=== PATIENT | male | born 1995 | race American Indian/Alaskan Native ===

== ENCOUNTER 2022-03-10 11:32 | Emergency (ER) | payer SELFPAY ==
[2022-03-10 12:47] VITALS: BP 127/84
--- NOTE | 2022-03-10 15:57 | Emergency Department Report ---
ED Recheck HPI - General Chief Complaint: Extremity Problem,Nontraumatic Stated Complaint: BLOOD CLOTS Time Seen by Provider: 03/10/22 14:58 Source: patient Mode of arrival: Ambulatory Limitations: No Limitations - History of Present Illness Initial Comments: This is a 27-year-old male nontoxic, well nourished in appearance, no acute signs of distress presents to the ED for medication change of Eliquis. Patient stated was diagnosed with DVT to right leg yesterday by [employer] but was not prescribed anything and was given a prescription for Eliquis but stated was not able to fill medication due to expense of it. Otherwise patient denies any acute symptoms or any changes of symptoms. Patient denies any chest pain, shortness of breath, fever, chills, nausea, vomiting, headache, stiff neck. Patient denies any allergies or significant past medical history. -: days(s) Symptoms Since Prior Visit: no new symptoms Associated Symptoms: none. denies: fever, chills, chest pain, shortness of breath, rash, malaise, nasuea, abdominal pain - Related Data Home Medications Medication Instructions Recorded Confirmed Last Taken No Known Home Medications [No 03/10/22 03/10/22 Unknown Reported Home Medications] Previous Rx's Medication Instructions Recorded Last Taken Type Rivaroxaban [Xarelto Starter Pack] 1 each PO DAILY 30 Days #1 pack 03/10/22 Unknown Rx ED Review of Systems ROS: Stated complaint: BLOOD CLOTS Other details as noted in HPI Comment: All other systems reviewed and negative Constitutional: denies: chills, fever Eyes: denies: eye pain, eye discharge, vision change ENT: denies: ear pain, throat pain Respiratory: denies: cough, shortness of breath, wheezing Cardiovascular: denies: chest pain, palpitations Endocrine: no symptoms reported Gastrointestinal: denies: abdominal pain, nausea, diarrhea Genitourinary: denies: urgency, dysuria Musculoskeletal: denies: back pain, joint swelling, arthralgia Skin: denies: rash, lesions Neurological: denies: headache, weakness, paresthesias Psychiatric: denies: anxiety, depression Hematological/Lymphatic: denies: easy bleeding, easy bruising ED Past Medical Hx - Past Medical History Additional medical history: DVT right lower leg - Social History Smoking Status: Never Smoker - Medications Home Medications: Home Medications Medication Instructions Recorded Confirmed Last Taken Type No Known Home Medications [No 03/10/22 03/10/22 Unknown History Reported Home Medications] Rivaroxaban [Xarelto Starter Pack] 1 each PO DAILY 30 Days #1 pack 03/10/22 Unknown Rx ED Physical Exam - General Limitations: No Limitations General appearance: alert, in no apparent distress - Head Head exam: Present: atraumatic, normocephalic - Eye Eye exam: Present: normal appearance - Neck Neck exam: Present: normal inspection, full ROM - Respiratory Respiratory exam: Absent: respiratory distress - Cardiovascular Cardiovascular Exam: Present: regular rate - Extremities Exam Extremities exam: Present: normal inspection, full ROM, tenderness, normal capillary refill, calf tenderness. Absent: joint swelling - Back Exam Back exam: Present: normal inspection, full ROM - Neurological Exam Neurological exam: Present: alert, oriented X3, normal gait - Psychiatric Psychiatric exam: Present: normal affect, normal mood - Skin Skin exam: Present: warm, dry, intact, normal color. Absent: rash ED Course Vital Signs 03/10/22 12:43 Temperature 98.6 F Pulse Rate 76 Respiratory 18 Rate Blood Pressure 127/84 O2 Sat by Pulse 98 Oximetry - Reevaluation(s) Reevaluation #1: 03/10/22 15:55 Patient is speaking in full sentences with no signs of distress noted. ED Recheck MDM - Medical Decision Making Patient received a dose of Xarelto. Patient also received a Xarelto 30-day free savings program and good Rx prescription card. Patient was instructed to follow-up with a primary care doctor in 3-5 days or if symptoms worsen and continue return to emergency room as soon as possible. At time of discharge, the patient does not seem toxic or ill in appearance. No acute signs of distress noted. Patient agrees to discharge treatment plan of care. No further questions noted by the patient. Critical care attestation.: If time is entered above; I have spent that time in minutes in the direct care of this critically ill patient, excluding procedure time. ED Disposition Clinical Impression: Medication course changed DVT (deep venous thrombosis) Qualifiers: DVT location: lower extremity Affected thrombotic vein of extremity: unspecified vein of extremity Chronicity: acute Laterality: right Qualified Code(s): I82.401 - Acute embolism and thrombosis of unspecified deep veins of right lower extremity Disposition: HOME / SELF CARE / HOMELESS Is pt being admited?: No Does the pt Need Aspirin: No Condition: Stable Instructions: Deep Vein Thrombosis, Rivaroxaban oral tablets Additional Instructions: Follow-up with a primary care doctor in 3-5 days or if symptoms worsen and continue return to emergency room as soon as possible. Prescriptions: Rivaroxaban [Xarelto Starter Pack] 1 each PO DAILY 30 Days #1 pack Referrals: PRIMARY CAREMD [Referring] - 3-5 Days LUISANA FOUNTAIN MD [Staff Physician] - 3-5 Days Time of Disposition: 16:01
[2022-03-10] MEDS: RIVAROXABAN 15 MG TAB PO ONE (16:31)
[2022-03-10] MEDS: HYDROcodone/ACETAMINOPHEN 10-325MG TAB PO ONE (18:15)
== END 2022-03-11 18:54 | disposition home or self-care (01) ==
LOC: ED 11:32
DX: Z86.718 Personal history of other venous thrombosis and embolism (principal); Z76.0 Encounter for issue of repeat prescription
CPT/HCPCS: 99282